=== PATIENT | female | born 1985 | race Hispanic/Latino ===

== ENCOUNTER 2017-06-04 13:31 | Emergency (ER) | payer OTHER ==
[2017-06-04 14:11] VITALS: BP 117/67; PULSE 76; RESP 16; TEMP 98; O2SAT 100
[2017-06-04] MEDS ORDERED: Lidocaine 2% Inj (20ml) INFIL ONE (14:12)
[2017-06-04] MEDS ORDERED: Lidocaine 1% Inj (20ml) IJ ONE (14:15)
--- NOTE | 2017-06-04 14:18 | ED PDOC ---
Upper Extremity Pain/Injury Time Seen by Provider: 06/04/17 14:11 Chief Complaint (Nursing): Abnormal Skin Integrity Chief Complaint (Provider): Abnormal Skin Integrity History Per: Patient History/Exam Limitations: no limitations Onset/Duration Of Symptoms: Days (x 3) Current Symptoms Are (Timing): Still Present Additional Complaint(s): Meet is a 32 year old female (6 weeks ) who presents to the emergency department with laceration to right palm, onset 13:30 today. Patient states she was cut by broken piece of glass and entered middle of her right hand while cleaning. Patient reports she is right handed. Denies problems with moving her right hand. Patient is unsure of last tetanus shot. PMD: Christy Garcia. Past Medical History Reviewed: Historical Data, Nursing Documentation, Vital Signs Vital Signs: Last Vital Signs Temp 98.0 F 06/04/17 14:08 Pulse 76 06/04/17 14:08 Resp 16 06/04/17 14:08 BP 117/67 06/04/17 14:08 Pulse Ox 100 06/04/17 14:08 - Medical History PMH: No Chronic Diseases - Surgical History Surgical History: Tonsillectomy - Family History Family History: States: Unknown Family Hx - Home Medications Home Medications: Ambulatory Orders Medication Instructions Recorded Naproxen 500 mg PO Q12 #20 tab 04/09/14 - Allergies Allergies/Adverse Reactions: Allergies Allergy/AdvReac Type Severity Reaction Status Date / Time No Known Allergies Allergy Verified 04/09/14 07:26 Review of Systems ROS Statement: Except As Marked, All Systems Reviewed And Found Negative Physical Exam - Reviewed Nursing Documentation Reviewed: Yes Vital Signs Reviewed: Yes - Physical Exam Extremity: Positive for: Other (1 cm laceration linear mid-palmar of right hand proximal to 4th digit. Able to flex. Sensations intact.) Neurologic/Psych: Positive for: Alert, hash slinger II-XII, Oriented (x 3). Negative for : Motor/Sensory Deficits - ECG O2 Sat by Pulse Oximetry: 100 (RA) Pulse Ox Interpretation: Normal Medical Decision Making Medical Decision Making: Time: 14:12 Plan: - Adacel 0.5 ml IM - Lidocaine 1% Laceration Repair Good closure and hemostasis. The patient tolerated the procedure well and there were no complications. Neurovascular intact. Scribe Attestation: Documented by Raz Turcios, acting as a scribe for Jazlyn Smart PA-C. Provider Scribe Attestation: All medical record entries made by the Scribe were at my direction and personally dictated by me. I have reviewed the chart and agree that the record accurately reflects my personal performance of the history, physical exam, medical decision making, and the department course for this patient. I have also personally directed, reviewed, and agree with the discharge instructions and disposition. Procedures - Laceration/Wound Repair Right Hand Wound Length (cm): 1 Wound's Depth, Shape: linear Wound Explored: clean Anesthesia: 1% Lidocaine Wound Repaired With: Sutures Suture Size/Type: 5:0, nylon Number of Sutures: 2 (Interrupted) Wound Complexity: Simple Disposition - Clinical Impression Clinical Impression: Hand laceration - Patient ED Disposition Is Patient to be Admitted: No - Disposition Disposition: Routine/Home Disposition Time: 14:38 Condition: FAIR Additional Instructions: RETURN TO ED/PMD/URGENT CARE IN 7 TO 10 DAYS FOR REMOVAL OF SUTURES Instructions: Care For Your Stitches (ED), Laceration (DC) Forms: [employer] (Yoruba)
== END 2017-06-04 15:01 | disposition home or self-care (01) ==
LOC: H.ER 13:31
DX: S61.411A Laceration without foreign body of right hand, initial encounter (principal); W25.XXXA Contact with sharp glass, initial encounter; Y92.89 Other specified places as the place of occurrence of the external cause